=== PATIENT | female | born 1955 | race Caucasian/White ===

== ENCOUNTER → 2018-12-16 | Outpatient (CLI) | payer OTHER ==
--- NOTE | 2018-12-16 15:37 | XR ---
Lumbosacral spine HISTORY: Low back pain 5 views of the lumbosacral spine No comparisons There is no evident spondylolysis or spondylolisthesis. Gentle spinal curvature is present. Lumbar ve rtebral bodies show preserved height, and bone mineralization is reduced. There is anterolisthesis gr narinder 1 L4-5, retrolisthesis grade 1 L3-4. Sclerosis present in the posterior elements. Multilevel spon dylosis with loss of disc height at intervertebral levels. Vascular calcifications noted incidentally . Surgical clips present right upper quadrant IMPRESSION: Degenerative disc disease and facet arthropathy, osteopenia. Additional findings above.
== END | disposition home or self-care (01) ==
LOC: RADXRMAIN 11:59
PROVIDERS: ATTEND Family Medicine
DX: M51.36 Other intervertebral disc degeneration, lumbar region (principal); M47.816 Spondylosis without myelopathy or radiculopathy, lumbar region; M43.16 Spondylolisthesis, lumbar region; M46.96 Unspecified inflammatory spondylopathy, lumbar region; M85.88 Other specified disorders of bone density and structure, other site; M43.8X6 Other specified deforming dorsopathies, lumbar region
CPT/HCPCS: 72110

== ENCOUNTER 2023-04-28 17:50 | Emergency (ER) | payer MEDICARE, OTHER ==
[2023-04-28 18:02] VITALS: TEMP 97.8
[2023-04-28 18:15] VITALS: RESP 18
[2023-04-28] MEDS ORDERED: diphenhydrAMINE 50 MG/ML 1 ML VIAL IVP STA (18:24)
[2023-04-28] MEDS ORDERED: FAMOTIDINE 20 MG/2 ML VIAL IV STA (18:24)
[2023-04-28] MEDS ORDERED: methylPREDNISolone SOD SUCCI 125 MG/2 ML VIAL IV STA (18:24)
[2023-04-28 19:09] LABS: HCT 41.4 % (34.0-46.0); HGB 13.8 gm/dL (11.4-16.0); MCH 30.1 pg (25.0-35.0); MCHC 33.3 g/dL (31.0-37.0); MCV 90.5 fL (80.0-100.0); Mean Platelet Volume 6.7; Platelet Count 365 k/uL (150-450); RBC 4.57 m/uL (3.80-5.40)
--- NOTE | 2023-04-28 19:19 | ED ---
General Adult HPI - General Chief complaint: Neuro Symptoms/Deficit Stated complaint: poss anthony's palsy, history of stroke Time Seen by Provider: 04/28/23 18:08 Source: patient Mode of arrival: wheelchair Limitations: no limitations - History of Present Illness Initial comments: This patient is a 68-year-old woman who presents with complaint that the right side of her face feels funny and seems to be drooping. She notes swelling of the right side of her lips. The patient gives history that she has been having a workup for TIA. She states she has had facial droop that comes and goes on the left side of her face. She notes that it is different than this and that today the right side of her face feels swollen and that is not usually the case with the left sided symptoms. The patient denies headache. She denies dyspnea or trouble with speech or swallowing. -: hour(s) Location: face Quality: dull Consistency: constant Improves with: none Worsens with: none Associated Symptoms: denies other symptoms Treatments Prior to Arrival: none - Related Data Home Medications Medication Instructions Recorded Confirmed Aspirin EC [Ecotrin Low Dose] 81 mg PO DAILY 04/28/23 04/28/23 Enalapril [Vasotec] 5 mg PO DAILY 04/28/23 04/28/23 Fluticasone/Vilanterol [Breo 1 puff INHALATION RT-DAILY 04/28/23 04/28/23 Ellipta 100-25 Mcg Inhaler] Levothyroxine Sodium [Synthroid] 88 mcg PO DAILY 04/28/23 04/28/23 Metoprolol Succinate [Metoprolol 25 mg PO DAILY 04/28/23 04/28/23 Succinate ER] Oxybutynin ER [Ditropan XL] 10 mg PO DAILY 04/28/23 04/28/23 Rosuvastatin [Crestor] 20 mg PO DAILY 04/28/23 04/28/23 Venlafaxine HCl [Effexor XR] 300 mg PO DAILY 04/28/23 04/28/23 clonazePAM [KlonoPIN] 1 mg PO DAILY PRN 04/28/23 04/28/23 metFORMIN HCL 1,000 mg PO W/BRKFST 04/28/23 04/28/23 metFORMIN HCL 500 mg PO W/SUPPER 06/25/23 06/25/23 Allergies Allergy/AdvReac Type Severity Reaction Status Date / Time Sulfa (Sulfonamide Allergy Anaphylaxis Verified 04/28/23 20:27 Antibiotics) Review of Systems ROS Statement: Those systems with pertinent positive or pertinent negative responses have been documented in the HPI. ROS Other: All systems not noted in ROS Statement are negative. Constitutional: Denies: fever, chills, weakness Eyes: Denies: eye pain, vision change ENT: Denies: congestion Respiratory: Denies: cough, dyspnea Cardiovascular: Denies: chest pain, palpitations, syncope Gastrointestinal: Denies: abdominal pain, vomiting, diarrhea Genitourinary: Denies: dysuria, hematuria Musculoskeletal: Denies: back pain Skin: Denies: rash Neurological: Reports: as per HPI, numbness. Denies: headache, weakness, paresthesias Past Medical History Past Medical History: CVA/TIA, Diabetes Mellitus Past Surgical History: Appendectomy, Cholecystectomy, Hysterectomy, Orthopedic Surgery Past Psychological History: Anxiety Smoking Status: Never smoker Past Alcohol Use History: None Reported Past Drug Use History: None Reported General Exam General appearance: alert, in no apparent distress Head exam: Present: atraumatic, normocephalic Eye exam: Present: normal appearance, PERRL, EOMI. Absent: scleral icterus, conjunctival injection, periorbital swelling, periorbital tenderness ENT exam: Present: mucous membranes moist, normal external ear exam, other (There is swelling to the right side of the lip) Neck exam: Present: normal inspection, full ROM. Absent: tenderness, meningismus Respiratory exam: Present: normal lung sounds bilaterally. Absent: respiratory distress, wheezes, rales, rhonchi, stridor Cardiovascular Exam: Present: regular rate, normal rhythm, normal heart sounds. Absent: systolic murmur, diastolic murmur, rubs, gallop GI/Abdominal exam: Present: soft. Absent: distended, tenderness, guarding, rebound, rigid, mass Extremities exam: Present: normal inspection, normal capillary refill. Absent: pedal edema, calf tenderness Back exam: Present: normal inspection. Absent: CVA tenderness (R), CVA tenderness (L) Neurological exam: Present: alert, oriented X3, CN II-XII intact. Absent: motor sensory deficit Expanded Neurological exam: Present: protecting the airway Speech: Present: fluid speech Cranial nerves: EOM's Intact: Normal, Tongue Deviation: Normal, Facial Se nsation: Normal, Facial Palsy with Forehead Movement: Normal Motor strength exam: RUE: 5, LUE: 5, RLE: 5, LLE: 5 Eye Response: (4) open spontaneously Motor Response: (6) obeys commands Verbal Response: (5) oriented Skin exam: Present: warm, dry, intact, normal color. Absent: rash Course Vital Signs 04/28/23 04/28/23 04/28/23 17:58 18:13 20:26 Temperature 97.8 F Pulse Rate 73 72 70 Respiratory 17 18 18 Rate Blood Pressure 117/75 119/74 105/56 O2 Sat by Pulse 98 96 97 Oximetry EKG Findings - EKG Results: EKG: interpreted by JOON, sinus rhythm (Rate 65 bpm), normal QRS - Blocks, [place], Hypertrophy, ST Abn: QRS axis and voltage: left axis deviation (-30 to -90) Medical Decision Making - Medical Decision Making This patient is a 68-year-old woman here with concern that she may be having a stroke. Clinically she does not manifest any weakness and her NIH stroke scale is 0. She clinically does manifest angioedema of the right side of the lips. The patient does take EMELY inhibitor for blood pressure. The patient is given medications. She is observed in the emergency department and there is no further worsening of the edema. We discussed that she must not take the enalapril, and she will follow with her physician to substitute another antihypertensive. We discussed appropriate return parameters and follow-up. Was pt. sent in by a medical professional or institution (, [facility], HOG OPERATOR, urgent care, hospital, or usp...) When possible be specific @ -[No] Did you speak to anyone other than the patient for history (EMS, parent, family, police, friend...)? What history was obtained from this source @ -[Patient's did give history Did you review nursing and triage notes (agree or disagree)? Why? @ -[I reviewed and agree with nursing and triage notes] Were old charts reviewed (outside hosp., previous admission, EMS record, old EKG, old radiological studies, urgent care reports/EKG's, usp records)? Report findings @ -[No old charts were reviewed] Differential Diagnosis (chest pain, altered mental status, abdominal pain women, abdominal pain men, vaginal bleeding, weakness, fever, dyspnea, syncope, headache, dizziness, GI bleed, back pain, seizure, CVA, palpatations, mental health, musculoskeletal)? @ -[Differential diagnosis for the patient's facial symptoms did initially include stroke and other neurologic problems, including Anthony's palsy, MS, peripheral neuropathy, in addition to the diagnosed EMELY inhibitor induced angioedema and other causes of angioedema including ALLERGY, amongst other cond itions. EKG interpreted by me (3pts min.). @ -[As above] X-rays interpreted by me (1pt min.). @ -[None done] CT interpreted by me (1pt min.). @ -[None done] U/S interpreted by me (1pt. min.). @ -[None done] What testing was considered but not performed or refused? (CT, X-rays, U/S, labs)? Why? @ -[None] What meds were considered but not given or refused? Why? @ -[None] Did you discuss the management of the patient with other professionals (professionals i.e. , PA, HOG OPERATOR, lab, RT, psych nurse, social and political studies professor, corporation lawyer, teacher, tank officer, case managers)? Give summary @ -[No] Was smoking cessation discussed for >3mins.? @ -[No] Was critical care preformed (if so, how long)? @ -[No] Were there social determinants of health that impacted care today? How? (Homelessness, low income, unemployed, alcoholism, drug addiction, transportat ion, low edu. Level, literacy, decrease access to med. care, senior care, rehab)? @ -[No] Was there de-escalation of care discussed even if they declined (Discuss DNR or withdrawal of care, Hospice)? DNR status @ -[No] What co-morbidities impacted this encounter? (DM, HTN, Smoking, COPD, CAD, Cancer, CVA, ARF, Chemo, Hep., AIDS, mental health diagnosis, sleep apnea, morbid obesity)? @ -[None] Was patient admitted / discharged? Hospital course, mention meds given and route, prescriptions, significant lab abnormalities, going to OR and other pertinent info. @ -[Patient is discharged, as above Undiagnosed new problem with uncertain prognosis? @ -[No] Drug Therapy requiring intensive monitoring for toxicity (Heparin, Nitro, Insulin, Cardizem)? @ -[No] Were any procedures done? @ -[No] Diagnosis/symptom? @ -[EMELY inhibitor-induced angioedema, acute Acute, or Chronic, or Acute on Chronic? @ -[default] Uncomplicated (without systemic symptoms) or Complicated (systemic symptoms)? @ -[Uncomplicated Side effects of treatment? @ -[No] Exacerbation, Progression, or Severe Exacerbation? @ -[No] Poses a threat to life or bodily function? How? (Chest pain, [place], [place], pneumonia, PE, COPD, DKA, ARF, appy, cholecystitis, CVA, Diverticulitis, Homicidal, Suicidal, threat to staff... and all critical care pts) @ -[No] - Lab Data Result diagrams: 04/28/23 18:45 04/28/23 18:45 Lab Results 04/28/23 04/28/23 04/28/23 Range/Units 18:45 18:45 18:45 WBC 13.0 H (3.8-10.6) k/uL RBC 4.57 (3.80-5.40) m/uL Hgb 13.8 (11.4-16.0) gm/dL Hct 41.4 (34.0-46.0) % MCV 90.5 (80.0-100.0) fL MCH 30.1 (25.0-35.0) pg MCHC 33.3 (31.0-37.0) g/dL RDW 14.0 (11.5-15.5) % Plt Count 365 (150-450) k/uL MPV 6.7 Neutrophils % (Manual) 28 % Lymphocytes % (Manual) 61 % Monocytes % (Manual) 7 % Eosinophils % (Manual) 3 % Basophils % (Manual) 1 % Neutrophils # (Manual) 3.64 (1.3-7.7) k/uL Lymphocytes # (Manual) 7.93 H (1.0-4.8) k/uL Monocytes # (Manual) 0.91 (0-1.0) k/uL Eosinophils # (Manual) 0.39 (0-0.7) k/uL Basophils # (Manual) 0.13 (0-0.2) k/uL Nucleated RBCs 0 (0-0) /100 WBC Manual Slide Review Performed PT 9.5 (9.0-12.0) sec INR 0.9 (<1.2) APTT 21.2 L (22.0-30.0) sec Sodium 136 L (137-145) mmol/L Potassium 4.1 (3.5-5.1) mmol/L Chloride 103 (98-107) mmol/L Carbon Dioxide 26 (22-30) mmol/L Anion Gap 7 mmol/L BUN 15 (7-17) mg/dL Creatinine 0.61 (0.52-1.04) mg/dL Est GFR (CKD-EPI)AfAm >90 (>60 ml/min/1.73 sqM) Est GFR (CKD-EPI)NonAf >90 (>60 ml/min/1.73 sqM) Glucose 95 (74-99) mg/dL Plasma Lactic Acid Stefano (0.7-2.0) mmol/L Calcium 9.1 (8.4-10.2) mg/dL Total Bilirubin 0.2 (0.2-1.3) mg/dL AST 25 (14-36) U/L ALT 20 (4-34) U/L Alkaline Phosphatase 115 (38-126) U/L Troponin I (0.000-0.034) ng/mL Total Protein 6.4 (6.3-8.2) g/dL Albumin 3.7 (3.5-5.0) g/dL TSH 0.805 (0.465-4.680) mIU/L 04/28/23 04/28/23 Range/Units 18:45 18:45 WBC (3.8-10.6) k/uL RBC (3.80-5.40) m/uL Hgb (11.4-16.0) gm/dL Hct (34.0-46.0) % MCV (80.0-100.0) fL MCH (25.0-35.0) pg MCHC (31.0-37.0) g/dL RDW (11.5-15.5) % Plt Count (150-450) k/uL MPV Neutrophils % (Manual) % Lymphocytes % (Manual) % Monocytes % (Manual) % Eosinophils % (Manual) % Basophils % (Manual) % Neutrophils # (Manual) (1.3-7.7) k/uL Lymphocytes # (Manual) (1.0-4.8) k/uL Monocytes # (Manual) (0-1.0) k/uL Eosinophils # (Manual) (0-0.7) k/uL Basophils # (Manual) (0-0.2) k/uL Nucleated RBCs (0-0) /100 WBC Manual Slide Review PT (9.0-12.0) sec INR (<1.2) APTT (22.0-30.0) sec Sodium (137-145) mmol/L Potassium (3.5-5.1) mmol/L Chloride (98-107) mmol/L Carbon Dioxide (22-30) mmol/L Anion Gap mmol/L BUN (7-17) mg/dL Creatinine (0.52-1.04) mg/dL Est GFR (CKD-EPI)AfAm (>60 ml/min/1.73 sqM) Est GFR (CKD-EPI)NonAf (>60 ml/min/1.73 sqM) Glucose (74-99) mg/dL Plasma Lactic Acid Stefano 1.6 (0.7-2.0) mmol/L Calcium (8.4-10.2) mg/dL Total Bilirubin (0.2-1.3) mg/dL AST (14-36) U/L ALT (4-34) U/L Alkaline Phosphatase (38-126) U/L Troponin I <0.012 (0.000-0.034) ng/mL Total Protein (6.3-8.2) g/dL Albumin (3.5-5.0) g/dL TSH (0.465-4.680) mIU/L Disposition Clinical Impression: Angioedema due to angiotensin converting enzyme inhibitor (EMELY-I) Disposition: HOME SELF-CARE Condition: Good Instructions (If sedation given, give patient instructions): Angioedema (ED) Additional Instructions: Stop taking the enalapril and follow with your doctor to substitute a new blood pressure medicine Is patient prescribed a controlled substance at d/c from ED?: No Referrals: Aimee Musa MD [Primary Care Provider] - 1-2 days
[2023-04-28 19:26] LABS: ALT 20 U/L (4-34); AST 25 U/L (14-36); African American GFR (CKD) >90 (>60 ml/min/1.73 sqM); Albumin 3.7 g/dL (3.5-5.0); Alkaline Phosphatase 115 U/L (38-126); Anion Gap 7 mmol/L; Blood Urea Nitrogen 15 mg/dL (7-17); Calcium 9.1 mg/dL (8.4-10.2); Carbon Dioxide 26 mmol/L (22-30); Chloride 103 mmol/L (98-107); Glucose 95 mg/dL (74-99); Non-African American GFR(CKD) >90 (>60 ml/min/1.73 sqM); Potassium 4.1 mmol/L (3.5-5.1); Sodium 136 mmol/L (137-145); Total Bilirubin 0.2 mg/dL (0.2-1.3); Total Protein 6.4 g/dL (6.3-8.2)
[2023-04-28 19:27] LABS: INR 0.9 (<1.2); Prothrombin Time 9.5 sec (9.0-12.0)
[2023-04-28 19:36] LABS: Basophils # (M) 0.13 k/uL (0-0.2); Eosinophils # (M) 0.39 k/uL (0-0.7); Lymphocytes # (M) 7.93 k/uL (1.0-4.8); Monocytes # (M) 0.91 k/uL (0-1.0); Neutrophils # (M) 3.64 k/uL (1.3-7.7); Neutrophils % (M) 28 %; Nucleated Red Blood Cells 0 /100 WBC (0-0); Total Cells Counted 100
[2023-04-28 19:47] LABS: Partial Thromboplastin Time 21.2 sec (22.0-30.0)
[2023-04-28 20:27] VITALS: BP 105/56; PULSE 70
== END 2023-04-28 20:37 | disposition home or self-care (01) ==
LOC: EC 17:50
DX: T78.3XXA Angioneurotic edema, initial encounter (principal); T46.4X5A Adverse effect of angiotensin-converting-enzyme inhibitors, initial encounter; E11.9 Type 2 diabetes mellitus without complications; F41.9 Anxiety disorder, unspecified; Z79.84 Long term (current) use of oral hypoglycemic drugs; Z79.82 Long term (current) use of aspirin; Z79.899 Other long term (current) drug therapy; Z88.2 Allergy status to sulfonamides; Z86.73 Personal history of transient ischemic attack (TIA), and cerebral infarction without residual deficits
CPT/HCPCS: 36415; 93005; 80053; 83605; 84443; 84484; 85025; 85610; 85730; 99284; 96374; 96375 ×2; J1200; J2930